=== PATIENT | male | born 1960 | race Caucasian/White ===

== ENCOUNTER 2017-09-22 16:23 | Emergency (ER) | payer BC ==
[~2017-09-22] VITALS: Ht 177.8 cm; Wt 119.3 kg
[2017-09-22 17:00] VITALS: Ht 177.8 cm; Wt 119.3 kg
--- NOTE | 2017-09-22 17:39 | EMERGENCY ROOM VISIT NOTE ---
History Report prepared by Daniel: Annabelle Huggins Under the Supervision of: Patrick HarveyO. First contact with patient: 17:07 Chief Complaint: CONSTIPATION Stated Complaint: COLD CHILLS,RECTAL/GASTRO PAINS Nursing Triage Summary: unable to have bowel movment for two days . rectal pain severe unable to stand it. History of Present Illness The patient is a 57 year old male who presents to the Emergency Room with complaints of constant constipation beginning 2 days ago. The patient reports that he had "bad" diarrhea 4 days ago and his last normal bowel movement was 3 days ago. He notes a decreased appetite, chills, and rectal pain with pressure beginning 2 days ago. The patient notes using a suppository 2 days ago with minimal relief. At baseline, the patient has a bowel movement daily.The patient reports bright red blood in his stool a couple days ago which he believed was from his hemorrhoid. Pt denies headache, change in vision, fevers, chest pain, shortness of breath, abdominal pain, nausea, vomiting, diarrhea, pain with urination, and melena. The patient reports a history of nodules in his lungs which he states he is going to follow up with his physician for. Source of History: patient Onset: 2 days ago Position: other (constipation ) Timing: constant Associated Symptoms: + chills, No chest pain, No SOB, No nausea, No vomiting , No abdominal pain, No urinary symptoms Note: He notes a decreased appetite, rectal pain and pressure Review of Systems See HPI for pertinent positives & negatives. A total of 10 systems reviewed and were otherwise negative. Past Medical & Surgical Medical Problems: (1) Lung nodules Family History Patient reports no known family medical history. Social History Smoking Status: Never Smoker Smokeless Tobacco Use: No Marital Status: Housing Status: lives with family Current/Historical Medications No Active Prescriptions or Reported Meds Allergies Coded Allergies: No Known Allergies (Unverified , 09/22/17) Physical Exam Vital Signs Date Time Temp Pulse Resp B/P (MAP) Pulse Ox O2 Delivery O2 Flow Rate FiO2 09/22/17 20:52 36.7 89 18 162/92 92 Room Air 09/22/17 17:00 37.3 103 22 161/84 95 Room Air Physical Exam GENERAL: alert, uncomfortable appearing, well nourished, no distress, non-toxic EYE EXAM: normal conjunctiva, PERRL and EOM's grossly intact OROPHARYNX: no exudate, no erythema, lips, buccal mucosa, and tongue normal and mucous membranes are moist NECK: supple, no nuchal rigidity, no adenopathy, non-tender LUNGS: Clear to auscultation. Normal chest wall mechanics HEART: no murmurs, S1 normal and S2 normal ABDOMEN: abdomen soft, non-tender, normo-active bowel sounds, no masses, no rebound or guarding. BACK: Back is symmetrical on inspection and there is no deformity, no midline tenderness, no CVA tenderness. SKIN: no rashes and no bruising UPPER EXTREMITIES: upper extremities are grossly normal. LOWER EXTREMITIES: Trace to 1+ pitting edema. RECTAL: No obvious hemorrhoid, or anal fissure, minimal stool in rectal vault, stool is guaiac negative. NEURO EXAM: Normal sensorium, cranial nerves II-XII grossly intact, normal speech, no gross weakness of arms, no gross weakness of legs. Medical Decision & Procedures ER Provider Diagnostic Interpretation: Radiology results have been interpreted by the radiologist and reviewed by me. KUB FINDINGS: 3 AP supine abdominal radiographs are obtained. No prior studies are available for comparison at the time of dictation. There is a nonobstructed abdominal bowel gas pattern. Moderate colonic fecal retention is observed. No evidence of intraperitoneal free air is seen on these supine images. There are no abnormal abdominal calcifications. Degenerative change is noted in the lumbar spine. The bony structures appear intact. IMPRESSION: Nonobstructed abdominal bowel gas pattern noting moderate colonic fecal retention. Electronically signed by: Abdi Kasper M.D. Laboratory Results Test 09/22/17 19:51 09/22/17 19:58 Bedside Lactic Acid Venous 1.06 mmol/L (0.90-1.70) Bedside Hemoglobin 14.6 g/dl (14.0-18.0) Bedside Hematocrit 43 % (42-52) Bedside Sodium 138 mEq/L (135-144) Bedside Potassium 3.4 mEq/L (3.3-5.0) Bedside Chloride 100 mEq/L (101-112) Bedside Total CO2 25 mEq/l (24-31) Anion Gap 18.0 mmol/L (16-25) Bedside Blood Urea Nitrogen 12 mg/dl (7-18) Bedside Creatinine 0.7 mg/dl (0.6-1.3) Bedside Glucose (other) 136 mg/dl (70-99) Bedside Ionized Calcium (Jacki) 1.10 mmol/l (1.12-1.32) ED Course 170: The patient was evaluated in room B6. A complete history and physical exam was performed. 1854: The patient is in the restroom. 1925: I updated the patient and he has had success post enema. 2047: I updated the patient on his results. He is feeling better. 2100: Upon reevaluation, the patient is feeling better. I discussed the findings and the treatment plan with the patient. He verbalizes agreement and understanding. The patient was discharged home. Medical Decision Differential diagnosis: Etiologies such as functional constipation, impaction, obstruction, volvulus, metabolic abnormality, infection, neurologic, as well as others were entertained. Patient with story for constipation, however not initially relieved following enema and bowel movement. Given patient's persistent symptoms and risk factors , [id number] labs and additional imaging performed. No evidence of colitis, proctocolitis, diverticulitis, perforation. Patient eventually did have some additional relief following subsequent enema. Vital signs otherwise stable. Patient with some discomfort at the anus. Discussed with him prevention of constipation, symptomatic relief of irritation of hemorrhoids, symptoms to watch and return for, he verbalized understanding was agreeable with plan. Medication Reconcilliation Current Medication List: was personally reviewed by me Blood Pressure Screening Patient's blood pressure: Elevated blood pressure Blood pressure disposition: Elevated BP felt to be situational Impression Primary Impression: Constipation Scribe Attestation The scribe's documentation has been prepared under my direction and personally reviewed by me in its entirety. I confirm that the note above accurately reflects all work, treatment, procedures, and medical decision making performed by me. Departure Information Dispostion Home / Self-Care Prescriptions No Active Prescriptions or Reported Meds Referrals Guanakito Francois D.O. (PCP) Forms HOME CARE DOCUMENTATION FORM, IMPORTANT VISIT INFORMATION Patient Instructions My [facility] Additional Instructions Please make sure you're drinking plenty of water and getting enough fiber in your diet to prevent any future constipation. Please do not push or strain or having a bowel movement or sit for prolonged periods of time as this can contribute to hemorrhoids and bleeding. If you develop any recurrent constipation, abdominal pain, fevers or chills, vomiting, difficulty urinating, or you've any other new concerns, please return the emergency room. Please continue your regular medications as prescribed. Problem Qualifiers Primary Impression: Constipation Constipation type: unspecified constipation type Qualified Codes: K59.00 - Constipation, unspecified
--- NOTE | 2017-09-22 17:52 | DIAGNOSTIC IMAGING REPORT ---
KUB CLINICAL HISTORY: Constipation. FINDINGS: 3 AP supine abdominal radiographs are obtained. No prior studies are available for comparison at the time of dictation. There is a nonobstructed abdominal bowel gas pattern. Moderate colonic fecal retention is observed. No evidence of intraperitoneal free air is seen on these supine images. There are no abnormal abdominal calcifications. Degenerative change is noted in the lumbar spine. The bony structures appear intact. IMPRESSION: Nonobstructed abdominal bowel gas pattern noting moderate colonic fecal retention. Electronically signed by: Abdi Kasper M.D. 09/22/2017 5:50 PM Dictated Date/Time: 09/22/2017 5:49 PM
[2017-09-22 20:10] LABS: ISTAT CREATININE 0.7 mg/dl (0.6-1.3); ISTAT HEMOGLOBIN 14.6 g/dl (14.0-18.0); ISTAT IONIZED CALCIUM 1.1 mmol/l (1.12-1.32)
--- NOTE | 2017-09-22 20:41 | DIAGNOSTIC IMAGING REPORT ---
CT SCAN OF THE ABDOMEN AND PELVIS WITHOUT IV CONTRAST CLINICAL HISTORY: Lower abdominal pain. Nausea and constipation. COMPARISON STUDY: KUB dated 09/22/2017. TECHNIQUE: CT scan of the abdomen and pelvis is performed from the lung bases to the proximal femora. Images are reviewed in the axial, sagittal, and coronal planes. IV contrast was not administered for this examination as per the referring clinician. Note that the examination was performed in suboptimal fashion without oral and IV contrast. A dose lowering technique was utilized adhering to the principles of ALARA. CT DOSE: 1573.33 mGy.cm FINDINGS: Lung bases: The heart is normal in size and without pericardial effusion. The lung bases are clear. There is a tiny hiatal hernia. Liver: The unenhanced liver is enlarged, measuring 19.4 cm in length. The liver demonstrates diffusely diminished attenuation consistent with hepatic steatosis. There is no intrahepatic biliary ductal dilatation. Gallbladder: Unremarkable. Spleen: Normal in size and attenuation. Pancreas: The unenhanced pancreas is grossly unremarkable. Adrenal glands: Unremarkable. Kidneys: The unenhanced kidneys are normal in size and without hydronephrosis. There are no renal calculi identified. There is no evidence of contour deforming renal mass lesion. Abdominal vasculature: The abdominal aorta is normal in course and caliber. Bowel: The small bowel and colon are normal in course and caliber. The appendix is well-visualized and normal. Prominent perirectal lymph nodes measure up to 10 mm. Mild presacral stranding is noted. Peritoneum: There is no intraperitoneal free air or abdominal ascites. There is a fat-containing umbilical hernia. Lymphadenopathy: None. Pelvic viscera: The bladder, prostate, and seminal vesicles are normal as visualized. Skeletal structures: There is mild lumbosacral spondylosis. Arthritic change is also seen in the sacroiliac joints. No lytic or blastic lesions are seen. IMPRESSION: 1. Suboptimal examination without oral and IV contrast. 2. There is mild and nonspecific presacral stranding as well as prominent perirectal lymph nodes. These findings are of indeterminate significance. No rectal wall thickening is seen. 3. Hepatomegaly and steatosis. Electronically signed by: Abdi Kasper M.D. 09/22/2017 8:40 PM Dictated Date/Time: 09/22/2017 8:33 PM
[2017-09-22 20:52] VITALS: BP 162/92; PULSE 89; TEMP 36.7; O2SAT 92
== END 2017-09-22 21:06 | disposition home or self-care (01) ==
LOC: C.EDB 16:24
DX: K59.00 Constipation, unspecified (principal)